=== PATIENT | female | born 1965 | race Caucasian/White ===

== ENCOUNTER 2016-08-16 12:15 | Emergency (ER) | payer OTHER ==
[2016-08-16 12:22] VITALS: O2SAT 96
--- NOTE | 2016-08-16 13:50 | EDPHY ---
H & P Stated Complaint: stood up inOR and smacked forehead on monitor/has hartmann/ feels "loopy" Time Seen by Provider: 08/16/16 13:19 HPI/ROS: CHIEF COMPLAINT: Head injury and pain HISTORY OF PRESENT ILLNESS: This is a healthy 51 y/o female complaining of right -sided head pain after striking her head at work. She was bending over in the OR adjusting a piece of equipment and stood up striking her head on an overhead monitor. She did not lose consciousness, fall, or sustain other trauma. She states within 30 seconds she developed a large hematoma near her hairline. She has been applying ice for pain and swelling with improvement. She denies vision changes, weakness, or paresthesias, but she does feel "a little off" and continues to have a headache. She denies significant medical history and denies prior head injuries. REVIEW OF SYSTEMS: A 10 point review of systems was performed and is negative with the exception of the elements mentioned in the history of present illness. 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 - Physical Exam Exam: General Appearance: Alert, no acute distress. * Head: Quarter-sized hematoma to right-frontal scalp without crepitus. Eyes: Pupils equal and round, no conjunctival injection, no discharge. ENT, Mouth: No hemotympanum. Mucous membranes are moist, no oropharyngeal erythema or edema. Neck: No lymphadenopathy, supple. Respiratory: Lungs are clear to auscultation; no wheezes, rales, or rhonchi. Cardiovascular: Regular rate and rhythm; no murmur, rub, or gallop. Gastrointestinal: Abdomen is soft and non tender, no masses or organomegaly, bowel sounds normal. Skin: Warm and dry, no rashes, normal color. Back: Nontender to palpation over the thoracolumbar spine. Extremities: No lower extremity edema, no calf tenderness or swelling. Neurological: Alert and oriented. Moving all four extremities easily and equally. Cranial nerves II through XII are examined and are intact (visual acuity not tested). Strength is 5 over 5 bilaterally with testing of all major motor groups. Sensation is intact to light touch over all 4 extremities. Deep tendon reflexes are 2+ in the biceps and knees bilaterally. Gait is normal. [id number] is performed accurately. Psychiatric: Normal affect. Constitutional: Initial Vital Signs Temperature (C) 36.7 C 08/16/16 12:19 Heart Rate 48 L 08/16/16 12:19 Respiratory Rate 17 08/16/16 12:19 Blood Pressure 111/81 H 08/16/16 12:19 O2 Sat (%) 96 08/16/16 12:19 O2 Delivery Mode Room Air Allergies/Adverse Reactions: No Known Allergies Allergy (Unverified 08/16/16 12:18) Home Medications: Medication Instructions Recorded NK [No Known Home Meds] 08/16/16 Medical Decision Making ED Course/Re-evaluation: Ice applied to hematoma. Patient declines pain medication. No clinical signs of skull fracture. She has a normal neuro exam. She likely has a concussion. Presentation does not meet imaging criteria. I've recommended ibuprofen/Tylenol and ice for pain and cognitive and physical rest until symptoms resolve. She's been referred to Dr. Mireles for unimproved symptoms. Strict return precautions given. She is comfortable with this plan. Departure - Departure Disposition: Home, Routine, Self-Care Clinical Impression: Head injury Qualifiers: Encounter type: initial encounter Qualified Code(s): S09.90XA - Unspecified injury of head, initial encounter Concussion Qualifiers: Encounter type: initial encounter Loss of consciousness presence/duration: without LOC Qualified Code(s): S06.0X0A - Concussion without loss of consciousness, initial encounter Traumatic hematoma of head Qualifiers: Encounter type: initial encounter Qualified Code(s): S00.93XA - Contusion of unspecified part of head, initial encounter Condition: Good Instructions: Concussion (ED), Head Injury (ED), Hematoma (ED) Additional Instructions: 1. Apply ice to sore areas and take 600mg ibuprofen every 6-8 hours or 650mg Tylenol every 4-6 hours for pain for the next few days. 2. Cognitive rest while symptoms are present. Avoid screen time including TV, phones, and computers until symptoms improve. 3. Physical rest while symptoms are present. Avoid any activities that could put you at further risk for a head injury until your symptoms resolve including contact sports, bicycling, etc. This may be 2 weeks or longer. 4. Follow up with Dr. Mireles, head injury specialist, for unimproved symptoms over the next 10-14 days. It's not uncommon to experience fatigue, mood swings, and difficulty concentrating with concussions. 5. Return to the ED for severe headache, weakness or numbness on one side of your body, vision changes, or other worsening of condition. Referrals: Mikey Eng DO [Primary Care Provider] - As per Instructions Lillian Mireles MD [Medical Doctor] - As per Instructions Report Scribed for: Katie Sood Report Scribed by: Na Miramontes Date of Report: 08/16/16 Time of Report: 13:50
[2016-08-16 14:03] VITALS: BP 108/78; PULSE 50; RESP 16; TEMP 97.9
== END 2016-08-16 14:03 | disposition home or self-care (01) ==
DX: S06.0X0A Concussion without loss of consciousness, initial encounter (principal); S00.93XA Contusion of unspecified part of head, initial encounter; W22.8XXA Striking against or struck by other objects, initial encounter; Y92.69 Other specified industrial and construction area as the place of occurrence of the external cause; Y99.0 Civilian activity done for income or pay; Y93.89 Activity, other specified

== ENCOUNTER → 2017-02-26 | Outpatient (CLI) | payer OTHER | LOC: FIMAGING 15:51 | PROVIDERS: ATTEND Family Medicine | DX: Z12.31 Encounter for screening mammogram for malignant neoplasm of breast (principal); R13.10 Dysphagia, unspecified ==

== ENCOUNTER 2017-08-09 13:32 | Emergency (ER) | payer OTHER ==
--- NOTE | 2017-08-09 13:47 | CPEKG ---
Heart Rate: 48 RR Interval: 1250 P-R Interval: 136 QRSD Interval: 86 QT Interval: 500 QTC Interval: 447 P Smithers: 59 QRS Smithers: 64 T Wave Smithers: 48 EKG Severity - OTHERWISE NORMAL ECG - EKG Impression: SINUS BRADYCARDIA Electronically Signed By: Linnette Florez 09-Aug-2017 15:19:20
[2017-08-09 14:07] LABS: PLATELET COUNT 169 10^3/uL (150-400)
--- NOTE | 2017-08-09 14:36 | EDPHY ---
H & P Stated Complaint: cp /reproduceable/did have inj/?rib fx 07/31 Time Seen by Provider: 08/09/17 13:38 HPI/ROS: CHIEF COMPLAINT: Left chest pain HISTORY OF PRESENT ILLNESS: 52-year-old female presents with left-sided chest pain. 2 weeks ago she was rollerblading and fell forward, with her fist I cancer left chest wall. She had immediate onset of severe left chest pain, the increased with deep inspiration. The pain fairly quickly subsided, but persisted over the past 2 weeks. The pain has been mild and she has been able to do her usual activities, including running and bicycling. Today she was sitting at her desk at work on the telephone, when she had sudden onset of worsening chest pain in the same location. The pain increases with movement and deep inspiration. History of pneumothorax. REVIEW OF SYSTEMS: complete 10 point ROS negative except at noted in the HPI - Personal History LMP (Females 10-55): Post Menopausal Current Tetanus/Diphtheria Vaccine: Yes - Medical/Surgical History Hx Asthma: No Hx Chronic Respiratory Disease: No Hx Diabetes: No Hx Cardiac Disease: No Hx Renal Disease: No Hx Cirrhosis: No Hx Alcoholism: No Hx HIV/AIDS: No Hx Splenectomy or Spleen Trauma: No Other PMH: pneumothorax - Social History Smoking Status: Never smoked Alcohol Use: Sober Drug Use: None - Physical Exam Exam: General Appearance: Alert, pleasant Eyes: Pupils equal and round, no conjunctival pallor ENT, Mouth: Mucous membranes moist Neck: Normal inspection Respiratory: Normal inspection, point tenderness over the left anterior chest wall, just below the left breast, lungs are clear to auscultation Cardiovascular: Regular rate and rhythm Gastrointestinal: Abdomen is soft and nontender Neurological: A&O, nonfocal exam Skin: Warm and dry Extremities: Normal inspection Psychiatric: Mood and affect normal Constitutional: Initial Vital Signs Temperature (C) 36.8 C 08/09/17 13:34 Heart Rate 55 L 08/09/17 13:34 Respiratory Rate 19 08/09/17 13:34 Blood Pressure 141/85 H 08/09/17 13:34 O2 Sat (%) 99 08/09/17 13:34 O2 Delivery Mode Room Air Allergies/Adverse Reactions: No Known Allergies Allergy (Verified 08/09/17 13:33) Home Medications: Medication Instructions Recorded NK [No Known Home Meds] 08/16/16 Medical Decision Making - Diagnostics Imaging Results: Imaging Impressions Chest X-Ray 08/09/17 13:39 Impression: Negative. No pneumothorax or displaced fracture. ED Course/Re-evaluation: This patient presents with worsening left-sided chest pain after a fall 2 weeks ago. Chest x-ray reveals no evidence of pneumothorax, query 9th rib fracture. Chest x-ray read by the radiologist reveals no evidence of fracture. Results discussed with the patient. Toradol 15 mg IV given. She will take ibuprofen 600 mg 3 times daily as needed for pain. Follow up with PCP. Incentive spirometer given. - Data Points Laboratory Results: Laboratory Results 08/09/17 13:50 08/09/17 13:50 08/09/17 08/09/17 08/09/17 13:50 13:50 13:50 WBC 8.26 10^3/uL 10^3/uL (3.80-9.50) RBC 4.21 10^6/uL 10^6/uL (4.18-5.33) Hgb 13.3 g/dL g/dL (12.6-16.3) Hct 38.4 % % (38.0-47.0) MCV 91.2 fL fL (81.5-99.8) MCH 31.6 pg pg (27.9-34.1) MCHC 34.6 g/dL g/dL (32.4-36.7) RDW 13.0 % % (11.5-15.2) Plt Count 169 10^3/uL 10^3/uL (150-400) MPV 11.5 fL fL (8.7-11.7) Neut % (Auto) 59.7 % % (39.3-74.2) Lymph % (Auto) 30.6 % % (15.0-45.0) [place] % (Auto) 8.1 % % (4.5-13.0) Eos % (Auto) 0.7 % % (0.6-7.6) Baso % (Auto) 0.7 % % (0.3-1.7) Nucleat RBC Rel Count 0.0 % % (0.0-0.2) Absolute Neuts (auto) 4.92 10^3/uL 10^3/uL (1.70-6.50) Absolute Lymphs (auto) 2.53 10^3/uL 10^3/uL (1.00-3.00) Absolute Monos (auto) 0.67 10^3/uL 10^3/uL (0.30-0.80) Absolute Eos (auto) 0.06 10^3/uL 10^3/uL (0.03-0.40) Absolute Basos (auto) 0.06 10^3/uL 10^3/uL (0.02-0.10) Absolute Nucleated RBC 0.00 10^3/uL 10^3/uL (0-0.01) Immature Gran % 0.2 % % (0.0-1.1) Immature Gran # 0.02 10^3/uL 10^3/uL (0.00-0.10) D-Dimer 0.31 ug/mLFEU ug/mLFEU (0.00-0.50) Sodium 142 mEq/L mEq/L (135-145) Potassium 3.9 mEq/L mEq/L (3.3-5.0) Chloride 103 mEq/L mEq/L (97-110) Carbon Dioxide 23 mEq/l mEq/l (22-31) Anion Gap 16 mEq/L mEq/L (8-16) BUN 22 mg/dL mg/dL (7-23) Creatinine 0.8 mg/dL mg/dL (0.6-1.0) Estimated GFR > 60 Glucose 81 mg/dL mg/dL (70-100) Calcium 9.8 mg/dL mg/dL (8.5-10.4) Departure - Departure Disposition: Home, Routine, Self-Care Clinical Impression: Rib fracture Qualifiers: Encounter type: initial encounter Rib fracture type: single rib Fracture type: closed Laterality: left Qualified Code(s): S22.32XA - Fracture of one rib, left side, initial encounter for closed fracture Condition: Good Instructions: Rib Fracture (ED) Additional Instructions: Ibuprofen 600 mg 3 times daily while the pain persists. Use the incentive spirometer 3-4 times daily. Return for any concerns, including shortness of breath, increasing pain, or cough. Referrals: Simon Merritt DO [Doctor of Osteopathy] - As per Instructions
[2017-08-09] MEDS ORDERED: KETOROLAC 15 MG/1 ML SDV IVP ONE (14:41)
[2017-08-09 15:20] VITALS: BP 103/72
== END 2017-08-09 15:10 | disposition home or self-care (01) ==
DX: S22.32XA Fracture of one rib, left side, initial encounter for closed fracture (principal); V00.131A Fall from skateboard, initial encounter; Y99.8 Other external cause status; Y93.51 Activity, roller skating (inline) and skateboarding
CPT/HCPCS: 96374; J1885